=== PATIENT | female | born 1945 | race Caucasian/White ===

== ENCOUNTER → 2018-11-08 14:44 | Outpatient (CLI) | payer MEDICARE, OTHER, SELFPAY | PROVIDERS: Family Provider Family Medicine; PCP Family Medicine; Visit Provider Family Medicine | DX: S31.109A Unspecified open wound of abdominal wall, unspecified quadrant without penetration into peritoneal cavity, initial encounter (principal); L08.9 Local infection of the skin and subcutaneous tissue, unspecified; E11.622 Type 2 diabetes mellitus with other skin ulcer | CPT/HCPCS: 11042; 87070; 87075; 87205; 99203; 99213 ==

== ENCOUNTER → 2018-11-16 10:20 | Outpatient (CLI) | payer MEDICARE, OTHER, SELFPAY | PROVIDERS: Family Provider Family Medicine; PCP Family Medicine; Visit Provider Family Medicine | DX: S31.109A Unspecified open wound of abdominal wall, unspecified quadrant without penetration into peritoneal cavity, initial encounter (principal); E11.622 Type 2 diabetes mellitus with other skin ulcer | CPT/HCPCS: 11042; 87070; 87075; 87205; 99213 ==

== ENCOUNTER → 2018-11-23 11:06 | Outpatient (CLI) | payer MEDICARE, OTHER, SELFPAY | PROVIDERS: Family Provider Family Medicine; PCP Family Medicine; Visit Provider Family Medicine | DX: S31.109A Unspecified open wound of abdominal wall, unspecified quadrant without penetration into peritoneal cavity, initial encounter (principal); E11.622 Type 2 diabetes mellitus with other skin ulcer | CPT/HCPCS: 11042 ==

== ENCOUNTER → 2018-11-30 10:09 | Outpatient (CLI) | payer MEDICARE, OTHER, SELFPAY | PROVIDERS: Family Provider Family Medicine; PCP Family Medicine; Visit Provider Family Medicine | DX: S31.109A Unspecified open wound of abdominal wall, unspecified quadrant without penetration into peritoneal cavity, initial encounter (principal); E11.622 Type 2 diabetes mellitus with other skin ulcer; E66.01 Morbid (severe) obesity due to excess calories | CPT/HCPCS: 11042 ==

== ENCOUNTER → 2018-12-07 12:55 | Outpatient (CLI) | payer MEDICARE, OTHER, SELFPAY | PROVIDERS: Family Provider Family Medicine; PCP Family Medicine; Visit Provider Family Medicine | DX: S31.109A Unspecified open wound of abdominal wall, unspecified quadrant without penetration into peritoneal cavity, initial encounter (principal); E11.622 Type 2 diabetes mellitus with other skin ulcer; Z79.4 Long term (current) use of insulin | CPT/HCPCS: 11042; 99214 ==

== ENCOUNTER → 2018-12-14 09:50 | Outpatient (CLI) | payer MEDICARE, OTHER, SELFPAY | PROVIDERS: Family Provider Family Medicine; PCP Family Medicine; Visit Provider Podiatrist Primary Podiatric Medicine | DX: S31.109D Unspecified open wound of abdominal wall, unspecified quadrant without penetration into peritoneal cavity, subsequent encounter (principal) | CPT/HCPCS: 99213 ==

== ENCOUNTER → 2018-12-23 10:02 | Outpatient (CLI) | payer MEDICARE, OTHER, SELFPAY | PROVIDERS: Family Provider Family Medicine; PCP Family Medicine; Visit Provider Family Medicine | DX: S31.109A Unspecified open wound of abdominal wall, unspecified quadrant without penetration into peritoneal cavity, initial encounter (principal); E11.622 Type 2 diabetes mellitus with other skin ulcer; L08.9 Local infection of the skin and subcutaneous tissue, unspecified; E66.01 Morbid (severe) obesity due to excess calories; Z79.4 Long term (current) use of insulin | CPT/HCPCS: 99213; 99214 ==

== ENCOUNTER → 2018-12-29 10:01 | Outpatient (CLI) | payer MEDICARE, OTHER, SELFPAY | PROVIDERS: Family Provider Family Medicine; PCP Family Medicine; Visit Provider Family Medicine | DX: S31.109D Unspecified open wound of abdominal wall, unspecified quadrant without penetration into peritoneal cavity, subsequent encounter (principal); E11.622 Type 2 diabetes mellitus with other skin ulcer | CPT/HCPCS: 99212; 99213 ==

== ENCOUNTER → 2019-01-04 13:14 | Outpatient (CLI) | payer MEDICARE, OTHER, SELFPAY | PROVIDERS: Family Provider Family Medicine; PCP Family Medicine; Visit Provider Family Medicine | DX: S31.109A Unspecified open wound of abdominal wall, unspecified quadrant without penetration into peritoneal cavity, initial encounter (principal); E11.622 Type 2 diabetes mellitus with other skin ulcer | CPT/HCPCS: 11042; 87070; 87075; 87077; 87102; 87186; 87205 ==

== ENCOUNTER → 2019-01-11 13:24 | Outpatient (CLI) | payer MEDICARE, OTHER, SELFPAY | PROVIDERS: Family Provider Family Medicine; PCP Family Medicine; Visit Provider Family Medicine | DX: S31.109A Unspecified open wound of abdominal wall, unspecified quadrant without penetration into peritoneal cavity, initial encounter (principal); E11.622 Type 2 diabetes mellitus with other skin ulcer; E66.01 Morbid (severe) obesity due to excess calories; Z79.4 Long term (current) use of insulin; L08.9 Local infection of the skin and subcutaneous tissue, unspecified | CPT/HCPCS: 99214 ==

== ENCOUNTER → 2019-01-17 13:37 | Outpatient (CLI) | payer MEDICARE, OTHER, SELFPAY | PROVIDERS: Family Provider Family Medicine; PCP Family Medicine; Visit Provider Family Medicine | DX: E11.622 Type 2 diabetes mellitus with other skin ulcer (principal); S31.109A Unspecified open wound of abdominal wall, unspecified quadrant without penetration into peritoneal cavity, initial encounter; B95.7 Other staphylococcus as the cause of diseases classified elsewhere; Z79.4 Long term (current) use of insulin; E66.01 Morbid (severe) obesity due to excess calories | CPT/HCPCS: 87070; 87075; 87205; 99213 ==

== ENCOUNTER → 2019-01-24 11:24 | Outpatient (CLI) | payer MEDICARE, OTHER, SELFPAY | PROVIDERS: Family Provider Family Medicine; PCP Family Medicine; Visit Provider Family Medicine | DX: S31.102A Unspecified open wound of abdominal wall, epigastric region without penetration into peritoneal cavity, initial encounter (principal); E11.9 Type 2 diabetes mellitus without complications; E66.01 Morbid (severe) obesity due to excess calories | CPT/HCPCS: 97597 ==

== ENCOUNTER → 2019-02-09 10:16 | Outpatient (CLI) | payer MEDICARE, OTHER, SELFPAY | PROVIDERS: Family Provider Family Medicine; PCP Family Medicine; Visit Provider Family Medicine | DX: S31.109A Unspecified open wound of abdominal wall, unspecified quadrant without penetration into peritoneal cavity, initial encounter (principal); E11.622 Type 2 diabetes mellitus with other skin ulcer; E66.01 Morbid (severe) obesity due to excess calories; Z79.4 Long term (current) use of insulin | CPT/HCPCS: 97597 ==

== ENCOUNTER → 2019-02-16 11:47 | Outpatient (CLI) | payer MEDICARE, OTHER, SELFPAY | PROVIDERS: Family Provider Family Medicine; PCP Family Medicine; Visit Provider Family Medicine | DX: E11.628 Type 2 diabetes mellitus with other skin complications (principal); S31.109D Unspecified open wound of abdominal wall, unspecified quadrant without penetration into peritoneal cavity, subsequent encounter; Z79.4 Long term (current) use of insulin | CPT/HCPCS: 99212; 99213 ==